=== PATIENT | male | born 1950 | race Caucasian/White ===

== ENCOUNTER 2024-06-12 12:16 | Emergency (ER) | payer MEDICARE ==
[2024-06-12 13:49] LABS: HEMATOCRIT 24.3 % (38.4-49.7); HEMOGLOBIN 7.9 g/dL (12.9-16.9); MEAN CORPUSCULAR HGB CONC 32.5 g/dL (31.6-35.5); MEAN CORPUSCULAR VOLUME 92.4 fL (81.4-99.0); PLATELET COUNT,PLT 111 K/uL (130-375); RED BLOOD CELL COUNT 2.63 M/uL (4.14-5.76)
[2024-06-12 14:07] LABS: WHITE BLOOD CELL COUNT,WBC 45.1 K/uL (3.2-11.0)
[2024-06-12 14:13] LABS: PROTHROMBIN TIME 10.6 sec (9.2-10.6); PTT,PARTIAL THROMBOPLSTIN TIME 27.9 sec (21.8-27.3)
[2024-06-12 14:17] LABS: ALANINE AMINOTRANSFERASE,ALT 39 U/L (12-78); ALBUMIN 2.7 g/dL (3.4-5.0); ALKALINE PHOSPHATASE 98 U/L (46-116); ASPARTATE AMNIOTRANSFERASE,AST 56 U/L (15-37); BILIRUBIN TOTAL 1.2 mg/dL (0.2-1.0); BLOOD UREA NITROGEN,BUN 28 mg/dL (7-18); CARBON DIOXIDE,CO2 26 mmol/L (21-32); CHLORIDE,CL 104 mmol/L (100-108); CREATININE 1.7 mg/dL (0.8-1.3); EST CRCL DRUG DOSING (CG) 36.97 mL/min; ESTIMATED GFR 41 mL/min (>60); GLUCOSE RANDOM 252 mg/dL (74-106); MAGNESIUM 1.7 mg/dL (1.8-2.4); PHOSPHORUS 3.3 mg/dL (2.5-4.9); POTASSIUM,K 4.6 mmol/L (3.6-5.2); PROTEIN TOTAL,TP 5.5 g/dL (6.4-8.2); SODIUM,NA 138 mmol/L (140-148); TROPONIN I HIGH SENSITIVITY 5.1 pg/mL (<=60.3)
[2024-06-12 14:18] LABS: APPEARANCE,URINE CLEAR (CLEAR); BILIRUBIN,URINE NEGATIVE (NEGATIVE); COLOR,URINE YELLOW (YELLOW); GLUCOSE,URINE 100 mg/dL (NEGATIVE); KETONES,URINE NEGATIVE (NEGATIVE); LEUKOCYTE ESTERASE,URINE NEGATIVE (NEGATIVE); NITRITE,URINE NEGATIVE (NEGATIVE); OCCULT BLOOD,URINE TRACE-INTACT (NEGATIVE); PH,URINE 5.5 (5.0-8.0); PROTEIN,URINE 30 mg/dL (NEGATIVE); UROBILINOGEN,URINE 0.2 EU/dL (0.2-1.0)
[2024-06-12 14:19] LABS: ANION GAP 12.6 mmol/L (5.0-14.0)
[2024-06-12 14:20] LABS: AMORPHOUS SEDIMENT,URINE MANY; EPITHELIAL CELLS,URINE RARE; RBC,URINE 0-5 (0-5); WBC,URINE 0-5 (0-5)
[2024-06-12 14:21] LABS: BACTERIA,URINE RARE; MUCUS,URINE FEW
[2024-06-12 14:26] LABS: ATYPICAL LYMPHOCYTES FEW; LYMPHOCYTES ABSOLUTE MAN 39.69 K/uL (0.8-3.3); LYMPHOCYTES PERCENT MAN 88 % (24-44); METAMYELOCYTE PERCENT MAN 2 %; MONOCYTES ABSOLUTE MAN 0.45 K/uL (0.20-0.90); MONOCYTES PERCENT MAN 1 % (2-6); NEUTROPHILS ABSOLUTE MAN 4.06 K/uL (1.0-7.6); SEG NEUTROPHILS PERCENT MAN 9 % (36-66)
[2024-06-12 15:01] LABS: RETICULOCYTE COUNT PERCENT 2.49 % (0.03-0.11)
[2024-06-12 15:13] LABS: C-REACTIVE PROTEIN 6.17 mg/dL (<0.50)
[2024-06-16 21:25] LABS: HAPTOGLOBIN 135 mg/dL (30-200)
== END 2024-06-12 17:13 | disposition left against medical advice (07) ==
LOC: JP.ED 12:16
DX: C91.00 Acute lymphoblastic leukemia not having achieved remission (principal); I10 Essential (primary) hypertension; E78.00 Pure hypercholesterolemia, unspecified; E03.9 Hypothyroidism, unspecified; Z79.82 Long term (current) use of aspirin; Z79.899 Other long term (current) drug therapy; Z79.890 Hormone replacement therapy
CPT/HCPCS: 36415; 70450; 70450-26; 71046; 71046-26; 80053; 81001; 83010; 83615; 83735; 84100; 84484; 84550; 85025; 85045; 85610; 85651; 85730; 86140; 93005; 99284

== ENCOUNTER 2025-08-08 07:31 | Emergency (ER) | payer MEDICARE, OTHER | END 2025-08-08 08:59 | disposition home or self-care (01) | LOC: JP.ED 07:31 | DX: R10.32 Left lower quadrant pain (principal); R14.0 Abdominal distension (gaseous); I10 Essential (primary) hypertension; E78.00 Pure hypercholesterolemia, unspecified; E03.9 Hypothyroidism, unspecified; Z79.899 Other long term (current) drug therapy; Z79.82 Long term (current) use of aspirin; Z79.890 Hormone replacement therapy | CPT/HCPCS: 99283 ==